=== PATIENT | male | born 1975 | race Caucasian/White ===

== ENCOUNTER 2022-01-31 11:28 | Day surgery (SDC) | payer BC ==
[2022-01-31] MEDS ORDERED: fentaNYL 100 MCG/2 ML SDV ONE (12:04)
[2022-01-31] MEDS: Lactated Ringers 1,000 ML IV SCH (12:04)
[2022-01-31] MEDS ORDERED: Propofol 200 MG/20 ML SDV ONE ×2 (12:04→13:50)
== END 2022-01-31 15:04 | disposition home or self-care (01) ==
LOC: VM.SDS 11:28
PROVIDERS: ATTEND Family Medicine
DX: Z12.11 Encounter for screening for malignant neoplasm of colon (principal); D12.6 Benign neoplasm of colon, unspecified; Z80.0 Family history of malignant neoplasm of digestive organs; K64.4 Residual hemorrhoidal skin tags; K64.8 Other hemorrhoids; F17.210 Nicotine dependence, cigarettes, uncomplicated; F32.5 Major depressive disorder, single episode, in full remission; E66.01 Morbid (severe) obesity due to excess calories; Z90.49 Acquired absence of other specified parts of digestive tract; Z98.890 Other specified postprocedural states; Z79.899 Other long term (current) drug therapy; Z91.09 Other allergy status, other than to drugs and biological substances; Z68.41 Body mass index [BMI] 40.0-44.9, adult
CPT/HCPCS: 00812; 45385; J2704; J3010; J7120